=== PATIENT | female | born 1950 | race American Indian/Alaskan Native ===

== ENCOUNTER 2017-11-13 08:57 | Day surgery (SDC) | payer MEDICARE ==
[2017-11-13] MEDS ORDERED: NACL 0.9% 1000 ML 1,000 ML IV SCH (10:00)
--- NOTE | 2017-11-13 10:01 | Anesthesia Consultation ---
Anesthesia Consult and Med Hx Date of service: 11/13/17 - Airway Anesthetic Teeth Evaluation: Good, Partials (upper and lower) ROM Head & Neck: Adequate Mental/Hyoid Distance: Adequate Mallampati Class: Class I - Pulmonary Exam CTA: Yes - Cardiac Exam Cardiac Exam: RRR - Pre-Operative Health Status ASA Pre-Surgery Classification: ASA3 Proposed Anesthetic Plan: MAC - Pulmonary Hx Asthma: Yes (inhaler every day) Hx Sleep Apnea: Yes (with CPAP) - Cardiovascular System Hx Hypertension: Yes (CHF, Cardiomyopathy) Hx Internal Defibrillator: Yes - Gastrointestinal Hx Gastroesophageal Reflux Disease: Yes (on meds) - Other Systems Hx Obesity: Yes
--- NOTE | 2017-11-13 10:02 | Anesthesia Day of Surgery ---
Anesthesia Day of Surgery - Day of Surgery Patient Examined: Yes Patient H&P Reviewed: Yes Patient is NPO: Yes
[2017-11-13] MEDS ORDERED: DIPRIVAN 10 MG/ML IV ONE ×2 (10:32)
--- NOTE | 2017-11-13 11:08 | Short Stay Summary ---
Short Stay Documentation Date of service: 11/13/17 Narrative H&P: the patient presents for surveillance colonoscopy for polyps. Last study was 5 years ago. - History Past Medical History: arthritis, COPD, heart failure, hypertension, other (CHF, cardiomyopathy) Past Surgical History: appendectomy, hysterectomy, Other (defibrillator) Social history: no significant social history, , lives with family, no smoking - Allergies and Medications Current Medications: Allergies aspirin Allergy (Unverified 11/13/17 08:58) Nausea Home Medications Medication Instructions Recorded Confirmed Last Taken Type Aliskiren/Hydrochlorothiazide 11/13/17 11/12/17 History [Tekturna Hct 300-12.5 mg Tab] Atorvastatin Calcium [Lipitor] 80 mg PO 11/13/17 11/12/17 History Coreg 25 mg PO BID 11/13/17 11/13/17 11/12/17 History Esomeprazole Magnesium [NexIUM] 40 mg PO QDAY 11/13/17 11/13/17 11/12/17 History Esomeprazole Magnesium [Nexium] 40 mg PO 11/13/17 11/12/17 History Fexofenadine HCl [Marcia Allergy] 180 mg PO 11/13/17 11/13/17 History Fluticasone [Flonase] 1 spray NS QDAY 11/13/17 11/13/17 11/13/17 History Mirabegron [Myrbetriq] 11/13/17 11/12/17 History Mometasone/Formoterol [Dulera 200 11/13/17 11/13/17 10:26 History Mcg/5 Mcg Inhaler] Olmesartan/Amlodipin/Hcthiazid 11/13/17 11/12/17 History [Tribenzor 40-10-25 mg Tablet] Terazosin [Hytrin] 5 mg PO QHS 11/13/17 11/13/17 11/12/17 History Tiotropium [place] [Spiriva 11/13/17 11/12/17 History Respimat] Warfarin [Coumadin] 5 mg PO QDAY 11/13/17 11/13/17 11/08/17 History methylPREDNISolone 11/13/17 11/12/17 History [methylPREDNISolone] Active Medications Sodium Chloride (Nacl 0.9% 1000 Ml) 1,000 mls @ 50 mls/hr IV DIRECT DELIA Last Admin: 11/13/17 10:51 Dose: 50 mls/hr - Physical exam General appearance: no acute distress, well-nourished Integumentary: no rash, no growths, no abnormal pigmentation HEENT: Atraumatic, PERRLA, EOMI, Mucous membr. moist/pink Lungs: Clear to auscultation, Normal air movement Breasts: deferred Heart: Regular rate, Normal S1, Normal S2, No murmurs, Murmur, Gallops Gastrointestinal: normoactive bowel sounds, no tenderness, no distended, no masses, no organomegaly Female Genitourinary: deferred Rectal Exam: normal exam-external/orifice, normal rectal tone, no mass Extremities: no ischemia, pulses intact, pulses symmetrical, No edema, normal temperature, normal color, Full ROM Neurological: Normal gait, Normal speech, Strength at 5/5 X4 ext, Normal tone, Sensation intact, Cranial nerves 3-12 NL - Brief post op/procedure progress note Date of procedure: 11/13/17 Findings: see dictation Estimated blood loss: none Pathology: list (ascending and transverse colon polyps) Specimen disposition: to lab Condition: stable - Disposition Condition at discharge: Good Disposition: DC-01 TO HOME OR SELFCARE - Discharge Diagnoses (1) History of colon polyps Status: Acute Short Stay Discharge Plan Activity: other (no driving for 24 hours, restart warfarin in 5 days) Weight Bearing Status: Weight Bear as Tolerated Diet: regular Follow up with: VENESSA BATISTA MD [Primary Care Provider] - 7 Days
[2017-11-13 11:11] VITALS: BP 117/73
--- NOTE | 2017-11-13 11:15 | Operative Report ---
Operative Report Operative Report: Date of procedure: 11/13/2017 Preprocedure diagnosis: Personal history of colon polyps. Last study 5 years ago. Post procedure diagnosis: 7 mm and 8 mm polyps in the right colon. Procedure: Colonoscopy to the cecum with hot snare polypectomy 2 Endoscopist: Dr. Gupta Anesthesia: Monitored anesthesia care per anesthesia department Estimated blood loss: 0 Medications: Monitored anesthesia care. See separate report by anesthesia for details. After careful discussion of the nature and purpose of the procedure as well as details of the technique risks benefits and alternatives the patient gave consent. Please see recent history and physical from the office. The patient was placed in the left lateral decubitus position and medicated per anesthesia. A rectal exam was performed sphincter tone was normal there were no masses palpable. The MatrixVisionn 570 scope was passed transanally and advanced under continuous direct vision without difficulty to the cecum. The colon was well prepared. The cecum was normal. The ascending colon revealed an 8 mm pedunculated polyp which was removed with the hot snare. The polyp was retrieved by suction. The ascending colon revealed a few scattered diverticula but otherwise was normal and on forward and retroflexed views. The transverse colon revealed a 7 mm pedunculated polyp which was removed with the hot snare. Few scattered diverticula were present in the transverse colon. The descending colon and sigmoid colon revealed scattered diverticula. The rectum was normal on forward and retroflexed views. The procedure was well-tolerated overall and the patient was observed in recovery. Conclusions: Small polyps in the ascending colon and transverse colon. Scattered diverticula throughout the colon. Plan: Await pathology. Follow-up colonoscopy in 5 years. Signed electronically: Dagoberto Gupta M.D.
--- NOTE | 2017-11-13 11:46 | Anesthesia Consultation ---
Anesthesia Consult and Med Hx Date of service: 11/13/17 - Airway Anesthetic Teeth Evaluation: Good ROM Head & Neck: Adequate Mental/Hyoid Distance: Adequate Mallampati Class: Class II Intubation Access Assessment: Probably Good - Pulmonary Exam CTA: Yes - Cardiac Exam Cardiac Exam: RRR - Pre-Operative Health Status ASA Pre-Surgery Classification: ASA2 Proposed Anesthetic Plan: MAC - Pulmonary Hx Asthma: Yes (inhaler every day) Hx Sleep Apnea: Yes (with CPAP) - Cardiovascular System Hx Hypertension: Yes (CHF, Cardiomyopathy) Hx Internal Defibrillator: Yes - Gastrointestinal Hx Gastroesophageal Reflux Disease: Yes (on meds) - Other Systems Hx Obesity: Yes
[2017-11-13] MEDS ORDERED: AMIDATE IV ONE (14:50)
== END 2017-11-13 08:58 | disposition home or self-care (01) ==
LOC: GIO 08:57
PROVIDERS: ATTEND Internal Medicine Gastroenterology
DX: D12.4 Benign neoplasm of descending colon (principal); D12.3 Benign neoplasm of transverse colon; K57.30 Diverticulosis of large intestine without perforation or abscess without bleeding; M19.90 Unspecified osteoarthritis, unspecified site; I10 Essential (primary) hypertension; E78.00 Pure hypercholesterolemia, unspecified; J44.9 Chronic obstructive pulmonary disease, unspecified; I50.9 Heart failure, unspecified; I42.9 Cardiomyopathy, unspecified; G47.30 Sleep apnea, unspecified; K21.9 Gastro-esophageal reflux disease without esophagitis; E66.9 Obesity, unspecified; Z68.41 Body mass index [BMI] 40.0-44.9, adult; Z90.89 Acquired absence of other organs; Z86.010 Personal history of colon polyps; Z90.710 Acquired absence of both cervix and uterus; Z98.890 Other specified postprocedural states; Z79.01 Long term (current) use of anticoagulants; Z79.899 Other long term (current) drug therapy; Z88.6 Allergy status to analgesic agent; Z96.652 Presence of left artificial knee joint; Z99.89 Dependence on other enabling machines and devices; Z95.810 Presence of automatic (implantable) cardiac defibrillator
CPT/HCPCS: 45385; 88305; J2704